=== PATIENT | male | born 1965 | race African-American/Black ===

== ENCOUNTER 2024-05-26 15:15 | Inpatient (IN) | payer OTHER ==
[2024-05-26 21:32] VITALS: BMI 31.6
[2024-05-26 22:05] LABS: Specific Gravity 1.012 (1.005-1.030); Sqamous Epithelial <5 /HPF (None Seen); Urine Bacteria None Seen /HPF (<20); Urine Bilirubin NEGATIVE (Negative); Urine Blood Negative (Negative); Urine Clarity Clear (Clear); Urine Color Light-Yellow (Yellow); Urine Culture Reflex Order NOT NEEDED; Urine Glucose NEGATIVE (Negative); Urine Ketones NEGATIVE (Negative); Urine Micro Reflex YN NO BILL MICROSCOPIC; Urine Mucus Slight /HPF (None Seen); Urine Nitrite NEGATIVE (Negative); Urine Protein NEGATIVE (Negative); Urine RBC <5 /HPF (None Seen); Urine Urobilinogen Normal (Normal); Urine WBC <5 /HPF (<5)
[2024-05-27 06:03] LABS: Absolute Basophils 0.1 K/uL (0-0.5); Absolute Eosinophils 0.5 K/uL (0-0.5); Absolute Lymphocytes (CBC) 1.6 K/uL (0.7-4.9); Absolute Monocytes 0.6 K/uL (0.1-1.3); Absolute Neutrophil 5.3 K/uL (1.8-8.0); Basophils % 1.2 % (0-1.3); Eosinophils % 6.2 % (0-4.4); Hematocrit 35.3 % (39.6-49.0); Hemoglobin 11.3 g/dL (13.6-17.9); Lymphocytes % 19.7 % (15.3-44.8); MCH 23.6 pg (27.0-35.0); MCV 73.7 fL (80-100); MPV 7.3 fL (7.6-11.3); Monocytes % 7.2 % (3.3-12.3); Neutrophils % 65.7 % (41.7-73.7); Nucleated Red Blood Cells % 0.1 % (0-0); Platelets 445 thou/uL (152-406); RBC Red Blood Cell Count 4.79 M/uL (4.33-5.43); Red Cell Distribution Width 15.1 % (12.1-15.2)
[2024-05-27 06:25] LABS: Albumin 2.7 g/dL (3.4-5.0); Anion Gap 7.1 mEq/L (5.0-15.0); Magnesium 1.8 mg/dL (1.6-2.4); Potassium 4.1 mEq/L (3.5-5.1); Prealbumin 12.9 mg/dL (20-40)
[2024-05-27] MEDS: APIXABAN 5 MG TABLET PO SCH (08:45)
[2024-05-27] MEDS: ESCITALOPRAM 20 MG TAB PO SCH (08:46)
[2024-05-27] MEDS: ASPIRIN 81 MG CHEWABLE TABLET PO SCH (08:47)
[2024-05-27] MEDS: AMLODIPINE 2.5 MG TAB PO SCH (09:53)
[2024-05-27] MEDS: SODIUM CHLORIDE 1 GM TAB PO SCH (17:10)
[2024-05-27] MEDS: ATORVASTATIN 80 MG TAB PO SCH (19:09)
--- NOTE | 2024-05-28 01:11 | HP ---
Date of Admission: 05/26/2024 Time Of Service: 10:30 a.m. Chief Complaint: "I have a stroke, my left side is weak that is my dominant hand." History Of Present Illness: Mr. Trejo is a 58-year-old left-handed patient with unt reated hypertension. The patient is off medicines and also history of myocardial infarction a year a go and deep vein thrombosis with cellulitis of the lower extremities, who was at home in his usual [facility] without focal neurological deficits and he woke up on the morning of 05/17 with left-si ded weakness. He woke up around 9 a.m. and he summoned and he was taken to the [facility], where a CT of his head revealed a subacute infarct in the right basal ganglia, internal capsule and CT angiogram identified a filling defect in the right MCA at the regio n of the right anterior temporal artery. He was obviously out of the window for acute intravenous th rombolysis with TNKs and was treated with aspirin, Plavix, atorvastatin, and eventually put on Xarelt o after deep vein thromboses were identified in both thighs. His course was complicated by acidosis related to possible sepsis. He did have low-grade fever, white blood cell count elevation and he was treated with antibiotics. Chest x-ray, blood cultures, and urinalysis were negative. Doppler study again revealed bilateral lower extremity DVTs, and his regimen was placed on Eliquis 10 mg twice otoniel ly for 7 days followed by 5 mg twice daily along with the aspirin. His hypertension was managed with some permissive hypertension in the setting of the acute to subacute stroke. He was evaluated by e therapy service and found to require moderate assistance for sit to stand for gait for ability to u se the left hand which is his dominant hand, especially to reach his face and to eat, required assist ance for his transfers and performing activities of daily living. Prior to his stroke, he ambulated without an assistive device, was independent for all household activities and while he was on disabil ity did not have any restrictions, although he was not driving. [facility] to help facilitate him return to his prior level of functioning and reduce r isk of rehospitalization. If the patient is sent to the lower level unit, chances are he will likely worsen and not improve as effectively as he could with aggressive physical therapy while his medical management is optimized. He does have a cardiac nurse specialist as a loop monitor in place to help rule out atrial fibrillation as a source of his stroke. He will be followed by his embossing clerk for that. Past Medical History: Hypertension, off medications; DVT; recent myocardial infarction a year ago. Social History: He smokes marijuana and drinks 2 alcoholic drinks daily and is noncompliant with med ications. Allergies: NO KNOWN DRUG ALLERGIES. Medications: Norvasc 2.5 mg twice daily; Eliquis 10 mg twice daily as noted, then 5 mg twice daily; aspirin 81 mg daily; Lipitor 80 mg at bedtime; Lexapro 10 mg daily. Imaging Studies: CT angiogram of the neck shows no proximal branch occlusion. There was moderate st enosis of the artery in the right anterior temporal artery very hypoplastic right A1 segment. Normal CT angiogram of the neck, normal CT perfusion. MR angiogram of the head without IV contrast shows n o major branch stenosis or occlusion, all qualitative and quantitative assessments of carotid bifurca tion and proximal internal carotid artery stenosis are made referring to the distal internal carotid artery. Chest x-ray shows no acute abnormalities. ECG shows sinus tachycardia, possible left atrial abnormality, cannot rule out infarct, age undetermined. Ultrasound Doppler shows negative, this is a transcranial Doppler for emboli which is negative. Ultrasound of the upper extremities on the shows no deep vein thrombus. Family History: Noncontributory. Laboratory Studies: White blood cell count 8.1, hemoglobin 11.3, platelets 445. Sodium 130, potassi um 4.1, chloride 98, carbon dioxide 29, BUN 14, creatinine 0.92. Glucose 101, up to 109. Calcium 9. 6, magnesium 1.8, albumin 2.7, prealbumin 12.9. Urinalysis completely normal. Review of Systems: The patient reports some moderate weakness from his stroke in the left upper and lower extremity. So me difficulty getting his thoughts and words out. Of course, there are significant venous stasis nereyda nges in the lower extremity. Evidence of prior skin infections obvious in the bilateral lower extrem ities. He has a dressing on the wound on the left leg and is healed from cellulitis noted on the rig ht leg. Current Level Of Functioning: For eating, supervision. Moderate assistance for oral hygiene. Clive cordova assistance for toileting and showering. Moderate assistance for upper body dressing. Maximal ass istance for lower body dressing. Donning and doffing footwear, maximal assistance. Rolling left-to- right, for sit to lying, contact guard assistance. For transferring from bed to chair, he is depende nt. Toilet dependent and gait will be ambulated. The patient will have a gait belt at all times. W heelchair to follow as he uses the walker in front. Physical Examination: Vital Signs: Blood pressure 138/87, pulse 70, respiratory rate 18, temperature 98.1, oxygen saturati on 100%, weight 190 pounds. Height 5 feet 5 inches. BMI 31.6. General: Mr. Trejo is sitting in a chair beside the bed. Does appear somewhat disheveled. HEENT: Otherwise, he is normocephalic, atraumatic. Sclerae are anicteric. Oropharynx pink and mois t. Neck: Supple. Chest: Clear. Extremities: Show significant changes from cellulitis on the right lower extremity. He has a bandag e on the left medial leg from wound for his deep vein thrombosis noted with mild edema in both lower extremities. Neurological: Cranial nerves show no obvious focal deficits. The patient has around 4/5 strength pr oximally and 3-4 distally in the left lower extremity and similarly so in the lower extremity. Repor ts intact sensation to light touch right, increased tone on the left is depressed. Depres sed reflexes, upper and lower extremities. Rehab And Medical Assessment And Plan: Mr. Trejo is a 58-year-old patient admitted to the inpatient rehabilitation unit with impairment category 01, stroke. Impairment group code is 01.1 left body inv olvement right brain. Etiologic diagnosis cerebral infarction involving the right MCA territory. Ad ditional comorbidities; drug use including marijuana, decreased mobility, decreased physical function ing, essential hypertension, leukocytosis, slurred speech, tachycardia, deep vein thrombosis on Xarel to and aspirin. Plan: 1.He will have physical, occupational, and speech therapy for 3-1/2 hours, 5 of 7 days. 2.For his deep vein thrombus, we will continue Eliquis and aspirin at mg twice daily and on 05/29/2024, then 5 mg twice daily along with aspirin 81 mg daily. 3.For dyslipidemia, Lipitor 80 mg at bedtime. 4.For depression, Lexapro 10 mg daily. 5.Norvasc 2.5 mg daily for his blood pressure. Comorbidities That Are Impacting Rehabilitation: He does have 2 deep vein thromboses in the lower ex tremities with a potential for pulmonary embolus. He is on anticoagulation as noted that we will con tinue. Does have cardiac monitoring, potentially atrial fibrillation is present. An EKG may be orde red to assess his rhythm. He is going to be encouraged to use incentive spirometry to reduce the ris k of an aspiration pneumonia, which may follow a stroke. In addition, he has significant stasis issu es in the lower extremities. We will have Wound Care to come in and assess and help with management. Rehab Specific Plan: 1.Mr. Trejo will have physical, occupational, and speech therapy 3-1/2 hours, 5 of 7 days to improve his ability to transfer from his bed to a chair to a toilet or shower, perform toileting and showeri ng. Also, he will have physical therapy to help with mobilization at least wheelchair mobilization t o be very efficient 250 feet. Work on him being able to use a rolling walker for household distances around 50 feet, also work on going up and down a few steps. The patient does have a single-story ho mt, no steps to go in and out and does have a walk-in and tub shower, but will practice both of those depending on how he is doing. Mr. Trejo has a good understanding of the process of admission to the inpatient rehabilitation facili and how he will benefit from physical, occupational, and speech therapy. He will have 24 hours a day, 7 days a week skilled rehabilitation nursing, daily physician evaluation and management, and soc ial service evaluation and management as needed for his discharge planning, home equipment, and follo wup along with continuing therapy. If need be additional help from the hospitalist service and cardi ology service will be sought. Again, given his risk of serious complications, rehabilitation cannot be effectively or safely performed at a lower level facility such as nursing home. Prior to discharge, Mr. Trejo does have his dominant hand involvement of the left side, making it delano y difficult for him to be able to perform all the activities and he will likely require someone at [facility] to help him; and therefore, he would be placed in a facility if he is unable to be effective in tr ansferring and being safe with his mobilization at home. Length Of Stay: Perhaps up to 3 weeks. Disposition: Home with family and continue physical therapy. Prognosis: Good. Code Status: Full code. Rehab Specific Goals: 1.Become independent as much as possible with upper and lower body dressing, donning and doffing of footwear. 2.Independently able to transfer from bed to chair to a toilet to a shower and perform upper and low er body dressing, as he also will work on performing his toileting and showering. 3.Work on his ability to independently mobilize a wheelchair 250 feet. 4.Household distances with a rolling walker to be independent with 50 feet, may not be able to go up and down steps, but may attempt 5 steps with right-sided handrail. 5.Be able to perform all cognitive functioning safely, which include safety awareness and be able to manage medications, be comply with medications, and follow up with physicians as scheduled if it per mits. The above goals were reviewed with Mr. Trejo and he is in agreement. By signing this document, I acknowledge I personally performed a full physical examination on Mr. Alan solorio no later than 24 hours after his admission to the inpatient rehabilitation facility and determined that he is able to tolerate the above course of treatment at an intensive level for a reasonable per iod of time. A detailed individualized plan of care for him will be completed by hospital day 4 based on the preadmission screen, history and phy sical therapy evaluations. TOBY Voice ID: [id number]
--- NOTE | 2024-05-28 18:59 | PN ---
Date of Progress Note: 05/28/2024 Time Of Service: 1:15 p.m. Subjective: Mr. Trejo is excellent in terms of his progress with recovery from his stroke. He is wo rking with speech pathologist and the therapist ambulated him around the unit. His left arm which is his dominant arm recovery is improving. His ability to communicate and understand speech improving. With the speech pathologist, she did identify he had some baseline cognitive deficits and is workin g hard to improve that along with the deficits related to his recent stroke. Objective: No fevers, chills, nausea, vomiting. No myalgias, arthralgias, rash, headache, weight ch ethan. Physical Examination: Vital Signs: Blood pressure 136/78, pulse 68, respiratory rate 16, temperature 97.3, oxygen saturati on 98%. Weight 190 pounds, height 5 feet 5 inches, BMI 31.6. General: Mr. Trejo is sitting in the room, working with therapist. Does have a giordano present. HEENT: He is normocephalic, atraumatic. Sclerae anicteric. Oropharynx pink and moist. Neck: Supple. Chest: Clear. Heart: Regular. Neurologic: In terms of his strength, the left upper extremity proximally to distally around 4 to 3 out of 5, actually to 2/5 in terms of swatch cutter strength by hand. Lower extremity on the left around 3 or 4, right side upper and lower 5/5. Decreased sensation over the left compared to the right side. Laboratory Studies: White blood cell count 8.1, hemoglobin 11.3, platelets are 445. Sodium 130, pot assium 4.1, chloride 98, carbon dioxide 29, BUN 14, creatinine 0.92, glucose 101. Calcium 9.6, magne sium 1.8. Albumin 2.7, prealbumin 12.9. Urinalysis completely normal. X-ray/imaging: No new x-rays or imaging. Medications: Norvasc 2.5 mg daily, Eliquis 10 mg twice daily from 05/27 to 05/29 and from 05/30 will be 5 mg twice daily on Eliquis, aspirin 81 mg daily, Lipitor 80 mg at bedtime, Lexapro 10 mg daily, lidocaine patch apply to the knee 1 daily, magnesium oxide 400 mg daily, sodium chloride 1 g twice da abby, tramadol 50 mg every 6 hours as needed for pain that is moderate. Progress Made With Physical, Occupational, And Speech Therapy: Today with physical therapy he ambula rupa with a rolling walker 75 feet, 25 feet, 150 feet and 300 feet with minimum to contact guard daniella mary kate. Wheelchair mobilization done 30 feet twice with minimum assistance. He performed bilateral s eated lower extremity exercises 20 repetitions, did very well with that, [id number]-lyntr with contact gu john assistance. With his occupational therapy, did continue bed mobilization, contact guard assistan ce, moderate assistance needed for stand pivot transfer, moderate assistance for toilet transfer with grab bars. With speech, his long-term goals are to improve short-term memory from mod assist to min assist, increase safety awareness, improve functional skills to help him become independent with ADL s and IADLs as he returns home. Assessment: Mr. Trejo is a 58-year-old patient in the rehabilitation unit with a right MCA stroke wi th left-sided paresis. Left side is his dominant side. He has decreased mobility, decreased physica l functioning, cognitive impairment, in addition to hyponatremia, on sodium replacement, hypertension , on Norvasc. He has had DVTs bilateral lower extremities and he is on Eliquis with a tapering cours e, will be continued along with aspirin. He has dyslipidemia, treated with Lipitor, he has depressio n, treated with Lexapro, magnesium oxide for muscle spasms, tramadol for pain. Plan: We will continue with physical, occupational, speech therapy for 3.5 hours, 5/7 days. We will continue with comorbid condition medications as noted above and the patient will have if need be nereyda ir alarm, bed alarm for impulsivity which he has not shown thus far. His blood work followed and in bed exercises to reduce risk of DVT including the flexion-extension of the lower extremities while in bed at least 10 sets every hour. The patient is encouraged to do that and work independently with the left arm movement to improve strength in the left arm. LB/MODL Voice ID: [id number] Report ID: [id number]
[2024-05-29 05:20] LABS: Absolute Basophils 0.1 K/uL (0-0.5); Absolute Eosinophils 0.5 K/uL (0-0.5); Absolute Lymphocytes (CBC) 1.4 K/uL (0.7-4.9); Absolute Monocytes 0.7 K/uL (0.1-1.3); Absolute Neutrophil 4.7 K/uL (1.8-8.0); Basophils % 1.1 % (0-1.3); Eosinophils % 6.2 % (0-4.4); Hematocrit 35.4 % (39.6-49.0); Hemoglobin 11.3 g/dL (13.6-17.9); Lymphocytes % 19.1 % (15.3-44.8); MCH 23.6 pg (27.0-35.0); MCV 73.8 fL (80-100); MPV 6.9 fL (7.6-11.3); Monocytes % 9.1 % (3.3-12.3); Neutrophils % 64.5 % (41.7-73.7); Platelets 449 thou/uL (152-406); RBC Red Blood Cell Count 4.79 M/uL (4.33-5.43); Red Cell Distribution Width 15.2 % (12.1-15.2)
[2024-05-29 05:40] LABS: Albumin 2.6 g/dL (3.4-5.0); Magnesium 1.7 mg/dL (1.6-2.4); Prealbumin 13.5 mg/dL (20-40)
[2024-05-29] MEDS: MAGNESIUM OXIDE 400 MG TAB PO SCH (08:17)
[2024-05-29] MEDS: TRAMADOL HCL 50 MG TAB PO PRN (08:18)
[2024-05-29] MEDS: LIDOCAINE 4% PATCH TOP SCH (08:18)
--- NOTE | 2024-05-29 14:56 | PN ---
Date of Progress Note: 05/29/2024 Time Of Service: 1:15 p.m. Subjective: Mr. Trejo is sitting in a chair, finished therapy today. He is happy so far with his th erapy in terms of recovering strength in the left arm which is his dominant side is affected by the s troke. He has no new complaints. Objective, no fevers, chills, nausea, vomiting, myalgias, arthralgias, rash, headache, weight change. Physical Examination: Vital Signs: Blood pressure 119/74, pulse of 74, respiratory rate 16, temperature 97.7, oxygen satur ation 98%, weight 190 pounds. Height 5 feet 5 inches. BMI 31.6. General: Mr. Trejo again is sitting in a chair. HEENT: He is normocephalic, atraumatic. Sclerae anicteric. Oropharynx pink and moist. Neck: Supple. Chest: Clear. Heart: Regular. Extremities: His left face slight decrease in the nasolabial fold in his left arm around 3.14/5 stre ngth coming back, dexterity is also coming back in the left side. Left leg around 4 as well. Right side fully strong. No other deficits noted. Laboratory Studies: White blood cell count 7.3, hemoglobin 11.3, platelets 449. Sodium 133, which i s improving. Potassium 4.0, chloride 101, carbon dioxide 29. His BUN is 13, creatinine 0.88, glucos e 103, calcium 9.2, magnesium 1.7, albumin 2.6, prealbumin 13.5. X-ray/imaging: No new x-rays or imaging. Medications: Medications have been reviewed. He is apparently still on the Eliquis, decreasing dose but does not have DVT, which he had again Eliquis 10 mg twice daily from 05/29/2024, then 5 mg twice daily along with aspirin 81 mg daily. All other medications continued. He does have the lidocaine patch for pain, magnesium oxide for muscle spasms. Progress Made With Physical, Occupational, And Speech Therapy: Today with physical therapy, he is ab le to ambulate 125 feet twice, a 75 feet once and 50 feet once minimum assistance. Emphasis placed o n good posture and upright posture and within the framework of the rolling walker. With his occupati onal therapy, required partial assistance for toilet hygiene for going up and down and up and down ac tually. Did otherwise supine to sit transfers, maximum assistance for edge of bed to wheelchair crawford sfer. With his speech therapy, he did use divergent naming for holiday associated words given specif ic letters. He was 80% accurate with minimum assistance. It is recommended of course he continue [facility] speech therapy. Assessment: Mr. Trejo is a 58-year-old patient with right hemispheric stroke producing left hemipare sis in left lower extremity. He is left arm dominant. He still has decreased mobility, decreased ph ysical functioning and in addition to depression, dyslipidemia, hypertension, DVTs in the lower extre mities. Plan: We will continue with physical, occupational, and speech therapy 3.5 hours, 5 of 7 days. We w ill continue with comorbid condition medications which have been listed and he does have antidepressa nt on board. Likely will need anticoagulation for much longer than his hospitalization and to have a recheck to see if deep vein thromboses have resolved that will be done outpatient. TOBY Voice ID: [id number] Report ID: [id number]
[2024-05-30] MEDS: CRANBERRY FRUIT EXTRACT 200 MG CAP PO SCH (08:38)
[2024-05-30] MEDS: APIXABAN 5 MG TABLET PO SCH (08:39)
[2024-05-30] MEDS: COLLAGENASE 30 GM OINTMENT TOP SCH (08:42)
--- NOTE | 2024-05-30 13:37 | P.RH.PN ---
Estimated Length of Stay: 16 Expected Discharge Date: 06/10/24 Discharge Disposition Plan: Home Family Support: Yes [facility] Goal: Mobility, Transfers, Self Care Vital Signs: Last Vital Signs Temp 97.8 F 05/30/24 08:00 Pulse 64 05/30/24 08:42 Resp 15 05/30/24 08:00 BP 131/75 05/30/24 08:42 Pulse Ox 99 05/30/24 08:00 Laboratory: Laboratory Last Values WBC 7.30 thou/uL (4.3-10.9) 05/29/24 04:54 RBC 4.79 M/uL (4.33-5.43) 05/29/24 04:54 Hgb 11.3 g/dL (13.6-17.9) L 05/29/24 04:54 Hct 35.4 % (39.6-49.0) L 05/29/24 04:54 MCV 73.8 fL (80-100) L 05/29/24 04:54 MCH 23.6 pg (27.0-35.0) L 05/29/24 04:54 MCHC 32.0 g/dL (32.0-36.0) 05/29/24 04:54 RDW 15.2 % (12.1-15.2) 05/29/24 04:54 Plt Count 449 thou/uL (152-406) H 05/29/24 04:54 MPV 6.9 fL (7.6-11.3) L 05/29/24 04:54 Neutrophils % 64.5 % (41.7-73.7) 05/29/24 04:54 Lymphocytes % 19.1 % (15.3-44.8) 05/29/24 04:54 Monocytes % 9.1 % (3.3-12.3) 05/29/24 04:54 Eosinophils % 6.2 % (0-4.4) H 05/29/24 04:54 Basophils % 1.1 % (0-1.3) 05/29/24 04:54 Absolute Neutrophils 4.7 K/uL (1.8-8.0) 05/29/24 04:54 Absolute Lymphocytes 1.4 K/uL (0.7-4.9) 05/29/24 04:54 Absolute Monocytes 0.7 K/uL (0.1-1.3) 05/29/24 04:54 Absolute Eosinophils 0.5 K/uL (0-0.5) 05/29/24 04:54 Absolute Basophils 0.1 K/uL (0-0.5) 05/29/24 04:54 Sodium 133 mEq/L (136-145) L 05/29/24 04:54 Potassium 4.0 mEq/L (3.5-5.1) 05/29/24 04:54 Chloride 101 mEq/L (98-107) 05/29/24 04:54 Carbon Dioxide 29 mEq/L (21-32) 05/29/24 04:54 Anion Gap 7.0 mEq/L (5.0-15.0) 05/29/24 04:54 BUN 13 mg/dL (7-18) 05/29/24 04:54 Creatinine 0.88 mg/dL (0.70-1.30) 05/29/24 04:54 Est GFR (CKD-EPI) 98 ml/min (=/>90) 05/29/24 04:54 Glucose 103 mg/dL (74-106) 05/29/24 04:54 POC Glucose 109 mg/dL (65-120) 05/26/24 21:38 Calcium 9.2 mg/dL (8.5-10.1) 05/29/24 04:54 Magnesium 1.7 mg/dL (1.6-2.4) 05/29/24 04:54 Albumin 2.6 g/dL (3.4-5.0) L 05/29/24 04:54 Prealbumin 13.5 mg/dL (20-40) L 05/29/24 04:54 Urine Color Light-yellow (Yellow) 05/26/24 21:40 Urine Clarity Clear (Clear) 05/26/24 21:40 Urine pH 6.0 (5.0-7.0) 05/26/24 21:40 Ur Specific [place] 1.012 (1.005-1.030) 05/26/24 21:40 Glucose (UA)(Auto) Negative (Negative) 05/26/24 21:40 Urine Ketones Negative (Negative) 05/26/24 21:40 Urine Blood Negative (Negative) 05/26/24 21:40 Urine Nitrite Negative (Negative) 05/26/24 21:40 Urine Bilirubin Negative (Negative) 05/26/24 21:40 Urine Urobilinogen Normal (Normal) 05/26/24 21:40 Ur Leukocyte Esterase Negative Edel/uL (Negative) 05/26/24 21:40 Urine RBC <5 /HPF (None Seen) 05/26/24 21:40 Urine WBC <5 /HPF (<5) 05/26/24 21:40 Ur Squamous Epith Cells <5 /HPF (None Seen) 05/26/24 21:40 Urine Bacteria None seen /HPF (<20) 05/26/24 21:40 Urine Mucus Slight /HPF (None Seen) 05/26/24 21:40 Urine Culture Reflexed Not needed 05/26/24 21:40 Urine Total Protein Negative (Negative) 05/26/24 21:40 Weight: 190 lb Wound Present: Yes Closed Surgical Incision Present: Yes Negative Pressure Wound Therapy Present: No Physician Update: Labs reviewed and are stable. BIMS 14. Pain is managed. On Eliquis 10 mg bid then to switch to 5 mg bid. Poor balance and safety awareness. SLUMS 22, likely ADHD and learning disable. Inpulsive. Met 3 STG, min assist for transfers. RW 250', 5 steps max assist. RW 250' with supervision. Met 5/6 STG and no LTG. Motivated. Summary: Patient's care plan and fpc goals have been reviewed and revised as necessary. Please see the Rehabilitation Signature page for all necessary signatures.
[2024-05-31] MEDS: CRANBERRY FRUIT EXTRACT 425 MG CAPSULE PO SCH (19:54)
[2024-06-02 06:00] LABS: Absolute Basophils 0.1 K/uL (0-0.5); Absolute Eosinophils 0.4 K/uL (0-0.5); Absolute Lymphocytes (CBC) 1.6 K/uL (0.7-4.9); Absolute Monocytes 0.6 K/uL (0.1-1.3); Absolute Neutrophil 3.9 K/uL (1.8-8.0); Basophils % 1.3 % (0-1.3); Eosinophils % 5.5 % (0-4.4); Hematocrit 37.2 % (39.6-49.0); Hemoglobin 11.3 g/dL (13.6-17.9); Lymphocytes % 24.6 % (15.3-44.8); MCH 22.7 pg (27.0-35.0); MCHC 30.5 g/dL (32.0-36.0); MCV 74.4 fL (80-100); MPV 7.2 fL (7.6-11.3); Monocytes % 8.8 % (3.3-12.3); Neutrophils % 59.8 % (41.7-73.7); Platelets 460 thou/uL (152-406); RBC Red Blood Cell Count 5.01 M/uL (4.33-5.43)
[2024-06-02 06:29] LABS: Anion Gap 8.3 mEq/L (5.0-15.0); Potassium 4.3 mEq/L (3.5-5.1)
--- NOTE | 2024-06-02 22:21 | PN ---
Date of Progress Note: 06/02/2024 Time Of Service: 1:20 p.m. Subjective: Mr. Trejo is resting comfortably in between therapy sessions. No new complaints or defi cits. He is with the speech pathologist and very happy to continue working very hard to improve his right upper extremity and lower extremity weakness and incoordination following his left hemispheric stroke. Objective: No fevers, chills, nausea, vomiting. No myalgias, arthralgias, rash. No other complaint s. Physical Examination: Vital Signs: Blood pressure 146/81, pulse 65, respiratory rate of 16, temperature 97.4, oxygen satur ation 97%. General: Again, Mr. Trejo is sitting comfortably. HEENT: He is normocephalic, atraumatic. Sclerae anicteric. Oropharynx pink, moist. Neck: Supple. Chest: Clear. Extremities: He has around 4/5 strength in left upper extremity, that is his dominant side and some dexterity issues there, has more issues in the left lower extremity, some weakness and leg stand to r oll in as he tries to ambulate over longer distances. Laboratory Studies: White blood cell count 6.6, hemoglobin 11.3, platelets 460. Sodium 136, potassi um 4.3, chloride 104, carbon dioxide 28, BUN 14, creatinine 0.95, calcium 9.8. X-ray/imaging: No new x-rays or imaging. Medications: His medications have been reviewed and are unchanged. Progress Made With Physical, Occupational, And Speech Therapy: Today with physical therapy, he is ab le to do multiple dho-hf-yjdbh transfers with standby assistance and a rolling walker and stand-to-pi vot transfers with contact guard assistance. He ambulated 250 feet, 500 feet, and 150 feet twice wit h supervision using a rolling walker, went up and down 5 steps with bilateral handrails and again is doing much better. With his occupational therapy, completed exercises to improve strength and indepe ndence in upper and lower extremities and was able to manipulate the eating utensils much better toda y. With his speech therapy, he demonstrated recall, stated 4/4 unrelated pictures after 5 and 10-min arcenio increments without assistance. Convergent naming was completed with 100% accuracy, minimal daniella tance. He did single word copy with 90% accuracy with dominant left-sided hand, did excellent job th ere. Assessment: Mr. Trejo is a 58-year-old patient with right hemispheric stroke, left-sided paresis whi ch is his dominant side, he is making excellent progress with physical, occupational, and his speech therapy. He has comorbidities of decreased mobility, decreased physical functioning, hypotension, rouse s had poor compliance with medications previously, but reports he will do very well this time. He rouse s dyslipidemia, depression, and hypertension. Plan: 1.For now, continue with physical, occupational, and speech therapy until discharge. 2.We will continue all comorbid condition medications which have been listed. The patient is strong ly encouraged to be compliant with medications, which do include because of DVT in the lower extremit ies, Eliquis 5 mg twice daily in addition to aspirin 81 mg daily, Lipitor, collagenase for his wound in the right lower extremity which the wound care is actually not helping with, he has Lexapro for de pression, lidocaine patch for his knee pain, magnesium oxide for muscle spasms, and sodium chloride f or hyponatremia. Again, continue with physical, occupational, and speech therapy. HELLEN/MEGHAN Voice ID: [id number] Report ID: [id number]
[2024-06-03] MEDS: CEPHALEXIN 500 MG CAP PO SCH (14:58)
--- NOTE | 2024-06-03 20:45 | PN ---
Date of Progress Note: 06/03/2024 Time Of Service: 1:10 p.m. Subjective: Mr. Trejo ambulates around the unit, doing very well with the therapist, has recovering strength in the left upper and lower extremity from his stroke. He does have an open wound in the [facility] lower extremity in the lateral aspect of the foot that has some drainage, it is a chronic stasis related wound that he is seeing a wound doctor in an outside hospital. There is Santyl twice a day b eing placed on it. Wound Care Service has been contacted a few days and still awaiting their assista nce. The patient will have Keflex beginning. There is kind of an odor to the wound which has possib ly even an undergoing worsening infection, but his white blood cell count is normal, but again we chele l have Wound Care involved and may have the ID Service as well. Objective: No fevers, chills, nausea, vomiting. Mild pain in the right lower extremity and the left side where he has his stroke, some stiffness, numbness, and otherwise no other complaints. Physical Examination: Vital Signs: Blood pressure 138/84, pulse 69, respiratory rate 16, temperature 97, oxygen saturation 97%. General: Again, Mr. Trejo is ambulating well around the unit. HEENT: Appears normocephalic, atraumatic. Sclerae anicteric. Oropharynx pink, moist. Neck: Supple. Extremities: Again, the wound in the right lower extremity on the lateral aspect of the leg has some mild drainage there and open, the whole total size around 2 to 3 inches. The left upper and lower e xtremity showed improved strength, coordination, dexterity, and he is ambulating well. Does have a t endency to scissor the left leg across when he is going down steps, otherwise doing well. Laboratory Studies: White blood cell 6.6, hemoglobin 11.3, platelets 460. His chemistry panel inclu ding sodium, potassium, chloride, carbon dioxide, BUN, creatinine, all normal. Calcium 9.8. X-ray/imaging: No new x-rays or imaging. Medications: Medications have been reviewed. He is on Keflex antibiotic which is 500 mg 4 times otoniel ly. He has collagenase to the wound, dressing changes done daily, Lexapro for depression, magnesium for muscle spasms, tramadol for pain. He has low sodium addressed with sodium chloride tablets, Eliq uis for DVT prophylaxis and addressing deep vein thrombi that are in both lower extremities. He has Eliquis 5 mg twice daily, Lipitor for dyslipidemia, aspirin for stroke risk reduction, Norvasc to hel p control his blood pressure. Progress Made With Physical And Occupational Therapy: Today with physical therapy, he did supine-to- sit transfers independently, perform multiple noc-wk-tryhg transfers with standby assistance and verb al cues. With a rolling walker, he ambulated 75 feet and twice 250 feet and then [address] guard assistance. With wheelchair, he mobilized a wheelchair 250 feet independently. Regarding h is occupational therapy, did very well. He was able to pick 2 to 3 pieces up with hand and improve h is hand inflation and dexterity and doing well with that and he is left handed and that is a dominant side, is impacted by his stroke. In terms of his speech, he did have 4/4 unrelated pictures recalle d after 5 and 10 minutes. Convergent naming completed with 100% accuracy. Assessment: Mr. Trejo is a 58-year-old patient in the rehabilitation unit with right hemispheric str nazario with paresis of left upper and lower extremity that is improving. He has DVT in both lower extre mities. He has a wound to the right leg that Wound Care will be helpful with, he has Keflex for that and Santyl dressing changes done daily. Additional; diabetes mellitus, hypertension, dyslipidemia, GE reflux, pain, hyponatremia, depression, all addressed. Plan: 1.He will continue with physical, occupational, and speech therapy 3.5 hours, 5 of 7 days. 2.Continue with comorbid condition medications which are listed. Wound Care will be hopefully roc lorenzo to see the patient, may ask Dr. Mccall on ID for involvement and even the local surgeons, although the patient's surgeon is at an out side hospital. HELLEN/MEGHAN Voice ID: [id number] Report ID: [id number]
--- NOTE | 2024-06-04 20:06 | PN ---
Date of Progress Note: 06/04/2024 Time Of Service: 1:15 p.m. Subjective: Mr. Trejo is resting in his room. He is very happy with his therapy thus far, ambulatin g better. His dexterity in the left upper and lower extremity the side involved with his stroke is i mproving. His right leg wound stage 2-3 is now healing and the wound care folks evaluated it and det ermined that Santyl was not required anymore, just wet-to-dry dressings, which will be done daily, an d after his discharge, he is following up with his primary care physician and wound care management anil Choudhary. Objective: Denies any fevers, chills, nausea, vomiting. No significant myalgias, arthralgias. No o ther complaints on review of systems. Physical Examination: Vital Signs: Blood pressure 156/87, pulse 62, respiratory rate 18, temperature 98.1, oxygen saturati on 98%. General: Mr. Trejo is sitting in a chair after his lunch in his room. HEENT: He is normocephalic, atraumatic. Sclerae anicteric. Oropharynx pink and moist. Neck: Supple. Chest: Clear. Extremities: His right lower extremity wound does show a total of around 2 inches, the area is heali ng. As noted Santyl will now be not applied, but wet-to-dry dressings on daily basis. Neurological: The left upper extremity improving strength around 3/5 to 4/5 dexterity imp roving in the left hand. He is left handed and that is the dominant side involved with the stroke an d right brain and left body involved. Laboratory Studies: No new laboratory studies. X-ray/imaging: No new x-rays or imaging. Medications: Medications have been reviewed and are unchanged except Santyl has been discontinued. Progress Made With Physical And Occupational Therapy: He is able to ambulate 250 feet twice, 500 fee t with contact guard assistance and 175 feet with contact guard assistance using a rolling walker and mobilized wheelchair 250 feet independently. He did not have episodes of loss of balance. Sit to s tand transfers done independently. With his occupational therapy, he is able to do very well. Impro ve his grasp and fine dexterity. He grasped 4 pieces of a small object, released them in the basket, able to pick 2-3 pieces up in his hand with improved manipulation. With speech, he was 100% accurat e in amwi-fe-hzhlm visual scanning and is doing very well with attention and cancellation tasks. Assessment: Mr. Trejo is a 58-year-old patient in the rehabilitation unit with a right hemispheric s troke causing paresis of left upper and lower extremity. He has some baseline cognitive impairment, but is improving and working with physical therapy, his cognition, safety awareness, ability to follo w instructions. He has comorbidities of decreased mobility, decreased physical functioning, of cours e stroke risk, dyslipidemia. The right lower extremity wound, he is completing Keflex course, will b e 3 days 500 mg 4 times daily. He has Lexapro for depression and neuropathic pain, magnesium oxide o n board for muscle relaxation. He has hyponatremia, addressed with sodium chloride 1 g twice daily. Tramadol for pain. Plan: We will continue with physical, occupational, and speech therapy for 3.5 hours, 5 of 7 days. His comorbid conditions have been listed and his medications as noted above will be continued. Again , Santyl discontinued. Wet to dry dressings on the right lower extremity wound. His therapy continu es aggressively to help him return to full independence as he is returning home. He will continue vi a Home Health and follow up with his physicians, outside hospital. HELLEN/MEGHAN Voice ID: [id number] Report ID: [id number]
[2024-06-05 05:39] LABS: Absolute Basophils 0.1 K/uL (0-0.5); Absolute Eosinophils 0.3 K/uL (0-0.5); Absolute Lymphocytes (CBC) 1.7 K/uL (0.7-4.9); Absolute Monocytes 0.6 K/uL (0.1-1.3); Absolute Neutrophil 4.1 K/uL (1.8-8.0); Basophils % 1.1 % (0-1.3); Eosinophils % 4.2 % (0-4.4); Hematocrit 36.7 % (39.6-49.0); Hemoglobin 11.3 g/dL (13.6-17.9); Lymphocytes % 25.8 % (15.3-44.8); MCH 22.6 pg (27.0-35.0); MCHC 30.9 g/dL (32.0-36.0); MCV 73.3 fL (80-100); MPV 7.4 fL (7.6-11.3); Monocytes % 8.4 % (3.3-12.3); Neutrophils % 60.5 % (41.7-73.7); Platelets 410 thou/uL (152-406); RBC Red Blood Cell Count 5.01 M/uL (4.33-5.43); Red Cell Distribution Width 15.3 % (12.1-15.2)
[2024-06-05 05:55] LABS: Albumin 2.9 g/dL (3.4-5.0); Anion Gap 5.4 mEq/L (5.0-15.0); Magnesium 1.6 mg/dL (1.6-2.4); Potassium 4.4 mEq/L (3.5-5.1); Prealbumin 15.6 mg/dL (20-40)
[2024-06-05] MEDS: MAGNESIUM OXIDE 400 MG TAB PO SCH (19:18)
--- NOTE | 2024-06-05 22:06 | PN ---
Date of Progress Note: 06/05/2024 Time Of Service: 1:50 p.m. Subjective: Mr. Trejo is very happy so far with his therapy. He is ambulating well around the unit, dexterity in the left upper extremity which affected the stroke side, it is improving. His right fo ot ulceration is doing well with wet-to-dry dressings, though Santyl being applied, and his antibioti c which is Keflex has been discontinued. Objective: He denies any fevers, chills, nausea, vomiting, myalgias, arthralgias. No new findings o r muscle spasms or pain other than reported previously which is mild. Physical Examination: Vital Signs: Blood pressure is 129/78, pulse 58, respiratory rate of 16, temperature 98.2, oxygen sa turation 98%. General: Mr. Trejo is sitting in a chair beside bed. HEENT: He is normocephalic, atraumatic. Sclerae anicteric. Oropharynx pink, moist. Neck: Supple. Chest: Clear. Extremities: His right lower extremity wound is bandaged which is we-to-dry dressing daily. Left lo wer extremity strength around 4/5 with some improving coordination and dexterity noted as well as low er extremity similarly so around 4/5 with improved smooth and directed movement. Laboratory Studies: White blood cell count 6.8, hemoglobin 13.3, which is identical to all for blood work when the patient has been in the hospital, his platelets are 410. Sodium 136, potassium 4.4, c hloride 106, BUN 12, creatinine 0.99, glucose 98, calcium 9.7, magnesium 1.6, prealbumin 15.6, improv ed from 12.9, 9 days ago, and albumin 2.9. X-ray/imaging: No new x-rays or imaging. Medications: His medications have been reviewed and magnesium oxide has been put at 400 mg twice otoniel ly as his blood work did show slightly low magnesium of 1.6, although still in normal range. Progress Made With Physical And Occupational Therapy Along With Speech Therapy: Today with physical therapy, he did multiple qif-qf-zkmrc transfers independently, jpdlw-iz-cdsju transfers done with mod ified independence, use of floor overcaster independently to pick up attendant multiple objects off the floor. He ambulated 500 feet with modified independence using a rolling walker, did symmetrical stepping and u se of his assistive device. Wheelchair mobilization 500 feet with modified independence and steps up and down 20 steps with contact guard assistance. With his occupational therapy, supervision for jordana let hygiene and for supine to sit transfers, contact guard for ehk-jt-aplij transfers. With speech, scored 15 on the BIMS score and 24 on the SLUMS score. Assessment: Mr. Trejo is doing very well in terms of recovery after his stroke affecting the left do minant side. He still has mild decreased mobility, decreased physical functioning in addition to jensen ctrolyte imbalances which have been addressed including sodium and magnesium, he has depression treat ed with Lexapro, Lipitor for dyslipidemia, aspirin for stroke risk reduction, Eliquis for DVT risk re duction and for treatment of DVTs in both lower extremities, and Norvasc 2.5 mg daily for hypertensio n. Plan: We will continue with physical, occupational, and speech therapy until discharge on the sevent h, which is in 2 days. Continue with all comorbid condition medications which have been noted. The wound again has wet-to-dry dressing. Keflex has been discontinued. All medications are continued as noted. HELLEN/MEGHAN Voice ID: [id number] Report ID: [id number]
--- NOTE | 2024-06-06 13:12 | P.RH.PN ---
Estimated Length of Stay: 12 Expected Discharge Date: 06/07/24 Discharge Disposition Plan: Home Family Support: Yes Jail Goal: Mobility, Transfers, Self Care Vital Signs: Last Vital Signs Temp 97.8 F 06/06/24 06:26 Pulse 58 06/06/24 08:09 Resp 16 06/06/24 06:26 BP 133/69 06/06/24 08:09 Pulse Ox 97 06/06/24 06:26 Laboratory: Laboratory Last Values WBC 6.80 thou/uL (4.3-10.9) 06/05/24 05:13 RBC 5.01 M/uL (4.33-5.43) 06/05/24 05:13 Hgb 11.3 g/dL (13.6-17.9) L 06/05/24 05:13 Hct 36.7 % (39.6-49.0) L 06/05/24 05:13 MCV 73.3 fL (80-100) L 06/05/24 05:13 MCH 22.6 pg (27.0-35.0) L 06/05/24 05:13 MCHC 30.9 g/dL (32.0-36.0) L 06/05/24 05:13 RDW 15.3 % (12.1-15.2) H 06/05/24 05:13 Plt Count 410 thou/uL (152-406) H 06/05/24 05:13 MPV 7.4 fL (7.6-11.3) L 06/05/24 05:13 Neutrophils % 60.5 % (41.7-73.7) 06/05/24 05:13 Lymphocytes % 25.8 % (15.3-44.8) 06/05/24 05:13 Monocytes % 8.4 % (3.3-12.3) 06/05/24 05:13 Eosinophils % 4.2 % (0-4.4) 06/05/24 05:13 Basophils % 1.1 % (0-1.3) 06/05/24 05:13 Absolute Neutrophils 4.1 K/uL (1.8-8.0) 06/05/24 05:13 Absolute Lymphocytes 1.7 K/uL (0.7-4.9) 06/05/24 05:13 Absolute Monocytes 0.6 K/uL (0.1-1.3) 06/05/24 05:13 Absolute Eosinophils 0.3 K/uL (0-0.5) 06/05/24 05:13 Absolute Basophils 0.1 K/uL (0-0.5) 06/05/24 05:13 Sodium 136 mEq/L (136-145) 06/05/24 05:13 Potassium 4.4 mEq/L (3.5-5.1) 06/05/24 05:13 Chloride 106 mEq/L (98-107) 06/05/24 05:13 Carbon Dioxide 29 mEq/L (21-32) 06/05/24 05:13 Anion Gap 5.4 mEq/L (5.0-15.0) 06/05/24 05:13 BUN 12 mg/dL (7-18) 06/05/24 05:13 Creatinine 0.99 mg/dL (0.70-1.30) 06/05/24 05:13 Est GFR (CKD-EPI) 87 ml/min (=/>90) L 06/05/24 05:13 Glucose 98 mg/dL (74-106) 06/05/24 05:13 POC Glucose 109 mg/dL (65-120) 05/26/24 21:38 Calcium 9.7 mg/dL (8.5-10.1) 06/05/24 05:13 Magnesium 1.6 mg/dL (1.6-2.4) 06/05/24 05:13 Albumin 2.9 g/dL (3.4-5.0) L 06/05/24 05:13 Prealbumin 15.6 mg/dL (20-40) L 06/05/24 05:13 Urine Color Light-yellow (Yellow) 05/26/24 21:40 Urine Clarity Clear (Clear) 05/26/24 21:40 Urine pH 6.0 (5.0-7.0) 05/26/24 21:40 Ur Specific [place] 1.012 (1.005-1.030) 05/26/24 21:40 Glucose (UA)(Auto) Negative (Negative) 05/26/24 21:40 Urine Ketones Negative (Negative) 05/26/24 21:40 Urine Blood Negative (Negative) 05/26/24 21:40 Urine Nitrite Negative (Negative) 05/26/24 21:40 Urine Bilirubin Negative (Negative) 05/26/24 21:40 Urine Urobilinogen Normal (Normal) 05/26/24 21:40 Ur Leukocyte Esterase Negative Edel/uL (Negative) 05/26/24 21:40 Urine RBC <5 /HPF (None Seen) 05/26/24 21:40 Urine WBC <5 /HPF (<5) 05/26/24 21:40 Ur Squamous Epith Cells <5 /HPF (None Seen) 05/26/24 21:40 Urine Bacteria None seen /HPF (<20) 05/26/24 21:40 Urine Mucus Slight /HPF (None Seen) 05/26/24 21:40 Urine Culture Reflexed Not needed 05/26/24 21:40 Urine Total Protein Negative (Negative) 05/26/24 21:40 Weight: 190 lb Wound Present: Yes Closed Surgical Incision Present: Yes Negative Pressure Wound Therapy Present: No Physician Update: Labs reviewed and are stable. Right knee pain up to 3/10 in the right knee. Occasional urinary incontinence. He has bilateral DVTs on Eliquis 5 mg bid. He has underline learning disability. Much improved memory deficits. BIMS 15, SLUMS 24. At baseline cognitive functioning. Met 4/4 STGF and 6/6 LTG. RW 500', 20 steps on stairs independent. Met all occupational therapy goals. Mildly impulsive but reminds himselfs to slow down. To be discharged home today. 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 Please see the Rehabilitation Signature page for all necessary signatures.
[2024-06-07 07:22] VITALS: BP 125/77; TEMP 98.1
== END 2024-06-07 17:00 | disposition home health service (06) | DRG 57 ==
LOC: 5TH 21:18
PROVIDERS: ADMIT Psychiatry & Neurology Neurology with Special Qualifications in Child Neurology; ATTEND Psychiatry & Neurology Neurology with Special Qualifications in Child Neurology
DX: I69.352 Hemiplegia and hemiparesis following cerebral infarction affecting left dominant side (principal); I69.354 Hemiplegia and hemiparesis following cerebral infarction affecting left non-dominant side; I82.403 Acute embolism and thrombosis of unspecified deep veins of lower extremity, bilateral; E87.1 Hypo-osmolality and hyponatremia; I10 Essential (primary) hypertension; F12.90 Cannabis use, unspecified, uncomplicated; R47.81 Slurred speech; R00.0 Tachycardia, unspecified; E78.5 Hyperlipidemia, unspecified; F32.A Depression, unspecified; K21.9 Gastro-esophageal reflux disease without esophagitis; I25.2 Old myocardial infarction; Z91.148 Patient's other noncompliance with medication regimen for other reason
CPT/HCPCS: 36415; 80048; 81001; 82040; 82947; 83735; 84134; 85025; 87077; 87086; 87088; 87186; 92507; 92523; 97110; 97112; 97116; 97129; 97163; 97165; 97530; 97542; J2003; J3590